=== PATIENT | female | born 1950 | race Caucasian/White ===

== ENCOUNTER 2018-11-17 13:37 | Day surgery (SDC) | payer MEDICARE, OTHER, SELFPAY ==
[2018-11-17] VITALS (11 sets, daily range): BP systolic 105–125; BP diastolic 59–73; PULSE 47–58; RESP 10–16; TEMP 36.2–36.3; O2SAT 96–99; BMI 24.6
--- NOTE | 2018-11-17 | PATH_ITS ---
[facility] Accession Number: [id number] . 01 Material submitted: . PART A: colon - POLYP ASCENDING COLON 2MM PART B: colon - ASCENDING COLON POLYP 3 X 2.5CM PART C: colon - DESCENDING COLON POLYP 1CM PART D: colon - SIGMOID COLON POLYP X 1.5CM PART E: colon - SIGMOID COLON POLYP 8-10 MM . 02 Diagnosis: A. Ascending Colon Polyp, 2 mm, Biopsy: Tubular adenoma. . B. Ascending Colon Polyp, 3 x 2.5 cm, Biopsy: Fragment of tubulovillous adenoma. Negative for high-grade dysplasia or malignancy. . C. Descending Colon Polyp, 1 cm, Biopsy: Tubular adenoma. . D. Sigmoid Colon Polyp, 1.5 cm, Biopsy: Tubular adenoma. . E. Sigmoid Colon Polyp, 8-10 mm, Biopsy: Hyperplastic polyp. [facility] 11/19/2018 1010 Local . 02 Electronically signed: . Wilfred Macario MD, PhD, Pathologist NPI- [id number] . 01 Gross description: . Part A: POLYP ASCENDING COLON 2MM: Received in formalin is 1 fragment(s) of mishra, soft tissue measuring 0.3 x 0.3 x 0.2 cm which is entirely submitted and submitted entirely in 1 cassette(s) Part B: ASCENDING COLON POLYP 3 X 2.5CM: Received in formalin is 1 fragment(s) of mishra, soft tissue measuring 0.3 x 0.2 x 0.2 cm which is entirely submitted and submitted entirely in 1 cassette(s) Part C: DESCENDING COLON POLYP 1CM: Received in formalin are 3 fragment(s) of mishra, soft tissue measuring 0.1 x 0.1 x 0.1 cm to 0.3 x 0.3 x 0.3 cm which is entirely submitted and submitted entirely in 1 cassette(s) Part D: SIGMOID COLON POLYP X 1.5CM: Received in formalin are 2 fragment(s) of mishra, soft tissue measuring 0.3 x 0.3 x 0.2 cm to 0.4 x 0.3 x 0.2 cm which is entirely submitted and submitted entirely in 1 cassette(s) Part E: SIGMOID COLON POLYP 8-10 MM: Received in formalin is 1 fragment(s) of mishra, soft tissue measuring 0.7 x 0.4 x 0.4 cm which is entirely submitted and submitted entirely in 1 cassette(s) /[facility] [place] 11/18/2018 1711 Local . 02 Pathologist provided ICD-10: D12.2, D12.4, D12.5 . 02 CPT . 975699, 763138, 819912, 926087, 648779 Performed at: 01 [facility] [address] [place] [address], [place], [place] [id number] MD Sergie Guevara MD Phone: [phone] Performed at: [address] [facility] [address] [place], [place] [id number] MD Carolyn Toledo MD Phone: [phone]
--- NOTE | 2018-11-17 14:44 | PM.OP.ENDO ---
Operative Date/Time/Diagnoses Date of procedure: 11/17/18 Time of procedure: 14:45 Pre-op diagnosis: 1. Screening for colon cancer Post-op diagnosis: other (1. Colon polyps) Procedure & Clinicians Study performed: Colonoscopy Same procedure as scheduled: Yes Indications: 1. Screening for colon cancer Surgeon: Lauren Barger Procedure Notes SCOAP/Timeout: 14:58 Procedure in detail: ENDOSCOPIST: Lauren Barger MD Sedation RN: Nafisa Dumont RN Sedation start time: 3:03 p.m. Sedation end time: 4:07 pm PROCEDURE: Colonoscopy with cold snare and methylene blue INDICATIONS: 1. Screening for colon cancer MEDICATION: Levsin 0.125 mg sublingual, incremental doses of Versed and fentanyl until appropriate level sedation achieved. ASA CLASS: 2 CECAL WITHDRAWAL TIME: 49 minutes COMPLICATIONS: None. EXTENT OF PROCEDURE: Cecum. QUALITY OF PREP: Good with portions of liquid stool. PROCEDURE: Prior to insertion of the colonoscope, a digital rectal examination was accomplished with circumferential palpation of the distal rectal mucosa without significant findings being noted. The high-definition pediatric colonoscope was passed into the rectum in the usual fashion and advanced over to the cecum without difficulty. The ileocecal valve, appendiceal stoma, and medial wall all could be inspected and no abnormalities were seen. ASCENDING COLON: As the colonoscope was withdrawn, care was taken to expose and inspect the haustral folds and a 2 mm polyp was seen and removed with cold biopsy forceps. In the mid-ascending colon, a 3 x 2.5 cm polyp was noted, targeted biopsy taken x1. Spot placed approximately 2 cm distal to the lesion on the medial and lateral ludwig. HEPATIC FLEXURE: Normal no polyps, diverticula or other abnormalities. TRANSVERSE COLON: Normal no polyps, diverticula or other abnormalities. DESCENDING COLON: A 1 cm polyp was seen, lifted with methylene blue, and removed with cold snare. Otherwise, no diverticula or other abnormalities. SIGMOID COLON: In the sigmoid colon, there was 1.5 cm polyp, lifted with methylene blue, hemoclip placed for hemostasis, and and removed with cold snare. Excellent hemostasis noted. Polyp was removed with a Rowley net and sent for pathology. Scope was then reinserted and a 2nd polyp approximately 8-10 mm was seen, lifted with methylene blue and removed with cold snare. Excellent hemostasis noted. Otherwise, no diverticula or other abnormalities. RECTUM: Normal. J maneuver was produced. There was no significant perianal disease. The J maneuver was broken. The remainder of the rectum was inspected and there was no external hemorrhoid disease. The scope was withdrawn. IMPRESSION: 1. Ascending polyp x1, 2 mm, removed with cold biopsy forceps 2. Ascending polyp x1, 3 x 2.5 cm, targeted biopsy taken x1, spot tattoo placed x2, unresected 3. Descending polyp x1, 1 cm, lifted with methylene blue, and removed with cold snare 4. Sigmoid polyp x2, 8-10 mm and 1.5 cm, lifted with methylene blue and removed with cold snares. Larger polyp was hemoclipped prior to polypectomy and removed with a Rowley net. PLAN: 1. Follow-up in clinic status post pathology results. The possibility of a missed lesion including a malignancy has been discussed with the patient previously. Potential alarm symptoms have been discussed and should be reported immediately. Scope withdrawal time: 49 minutes Sedation minutes: 64 Findings: polyp Specimen(s): other (as above) Complications: none Impression: As above Post-procedure Recommendations: Will call with biopsy results Follow up: weeks (2) Disposition: PACU
[2018-11-17] MEDS: HYOSCYAMINE 0.125 MG TABLET PO (14:54)
[2018-11-17] MEDS: MIDAZOLAM 5 MG/5 ML VIAL IV (16:10)
[2018-11-17] MEDS: fentaNYL 250 MCG/5 ML INJ IV (16:10)
[2018-11-17] MEDS: METHYLENE BLUE 50 MG/10 ML VIAL 10 MG IV (16:11)
--- NOTE | 2018-11-17 18:04 | SUR.PHASEII ---
1730 Dr. Barger notified HR 45, VVO for 1L bolus with a pressure bag. IV bag hung, pressure bag applied.
--- NOTE | 2018-11-17 18:11 | SUR.PHASEII ---
pt reported mild nausea, declined med. Queaze provided.
--- NOTE | 2018-11-17 18:44 | SUR.PHASEII ---
Pt able to sit and stand without difficulty. IV fluid bolus complete. HR 49. IV d/c'd. Pt dressed independently. Spouse present.
== END 2018-11-17 18:35 | disposition home or self-care (01) ==
PROVIDERS: PCP Student in an Organized Health Care Education/Training Program; Visit Provider Student in an Organized Health Care Education/Training Program
PROC: 0DJD8ZZ Inspection of Lower Intestinal Tract, Via Natural or Artificial Opening Endoscopic (ICD-10-PCS; CPT 45378; principal; 2018-11-17 15:00)
DX: Z12.11 Encounter for screening for malignant neoplasm of colon (principal); D12.2 Benign neoplasm of ascending colon; D12.4 Benign neoplasm of descending colon; D12.5 Benign neoplasm of sigmoid colon
CPT/HCPCS: 45385; 45381; J2250; J3010; Q9968

== ENCOUNTER 2019-01-06 09:42 | Day surgery (SDC) | payer MEDICARE, OTHER, SELFPAY ==
--- NOTE | 2019-01-06 | PATH_ITS ---
[facility] Accession Number: [id number] . 01 Material submitted: . colon - ASCENDING COLON POLYP . 02 Diagnosis: Ascending Colon Polyp: Multiple fragments of tubulovillous adenoma. There is no evidence of high-grade dysplasia or malignancy; electrocautery artifact is focally obscuring. [facility] 01/07/2019 1505 Local . 02 Electronically signed: . Pili Workman MD, Pathologist NPI- [id number] . 01 Gross description: . ASCENDING COLON POLYP: Received in formalin are multiple fragment(s) of mishra, soft tissue measuring 0.1 x 0.1 x 0.1 cm to 0.6 x 0.5 x 0.5 cm submitted entirely in 4 cassette(s) /DM 01/06/2019 2209 Local . 02 Pathologist provided ICD-10: K63.5, D49.0 . 02 CPT . 233299 Performed at: 01 [facility] [address], [place], [place] [id number] MD Sergei Guevara MD Phone: [phone] Performed at: 02 [facility] [address] [place], [place] [id number] MD Carolyn Toledo MD Phone: [phone]
[2019-01-06 09:57] VITALS: BMI 24.5
[2019-01-06 10:04] VITALS: BP 138/83; PULSE 58; RESP 16; TEMP 36.5; O2SAT 98
[2019-01-06] MEDS: SODIUM CHLORIDE 0.9% 1,000 ML 200 ML IV (10:22)
--- NOTE | 2019-01-06 10:37 | PM.PREOP ---
Pre-operative Note Interval Note History & Physical reviewed/Exam performed by Physician: Yes Changes to H&P: No ASA Class (for procedural sedation): II
[2019-01-06] MEDS: ONDANSETRON 4 MG/2 ML INJ IV (10:50)
[2019-01-06] MEDS: MIDAZOLAM 5 MG/5 ML VIAL IV (11:50)
[2019-01-06] MEDS: fentaNYL 250 MCG/5 ML INJ IV (11:50)
--- NOTE | 2019-01-06 11:54 | PM.OP.ENDO ---
Operative Date/Time/Diagnoses Date of procedure: 01/06/19 Time of procedure: 11:55 Pre-op diagnosis: Colon polyp ascending colon Post-op diagnosis: same (Diverticulosis sigmoid colon. Other smaller scattered polyps many of which were cauterized.) Procedure & Clinicians Study performed: Colonoscopy with hot snare polypectomy, cauterization of small polyps, injection of Latia ink into the wall of the colon in the ascending colon just distal to the large polyp found there. Same procedure as scheduled: Yes Indications: Patient has a large polyp in the ascending colon. I was asked to attempt to retrieve it. Surgeon: Roly Rodriguez Procedure Notes SCOAP/Timeout: Performed Procedure in detail: The patient was placed in the left lateral decubitus position and underwent IV sedation directed by the surgeon consisting of fentanyl and Versed. Digital exam was unremarkable except for decreased sphincter tone. The scope was inserted and advanced through the rectum into the sigmoid, descending, transverse, and ascending colon. I noted a small polyp going in that I decided to retrieve on the way out. I also noticed the large polyp in the ascending colon beyond the cecum.. The cecum was reached identified by the ileocecal valve. The scope was gradually brought out. In the ascending colon I was able to snare and removed the large polyp in pieces. The largest piece I had actually slice into segments in order to suction it through the colonoscope. At completion the base appeared to be free of lesion. Just beyond it I injected Latia ink into 3 locations the cc at each location. Each raised a good bubble of ink in just under the mucosa. Multiple other Polyps were found as I brought the scope out. These were small and I chose to cauterized these since the patient was already known to have numerous adenomas. All of these were under a cm in size. This included the polyp ice on the way in.. The scope ultimately was slowly brought through the anal verge. No lesions were seen there. The scope was removed and the patient tolerated the procedure well. The prep was excellent. Scope withdrawal time: Exceeded 6 minutes Sedation minutes: 62 Findings: diverticulosis (Sigmoid) and polyp (Multiple) Specimen(s): other (Polyp at ascending colon) Complications: none Post-procedure Recommendations: Other recommendation (Repeat colonoscopy in 6 months to ensure no regrowth of the lesion in the ascending colon.) Follow up: as needed Disposition: PACU
[2019-01-06 12:01] VITALS: BP 142/80; PULSE 59; RESP 13; TEMP 36.3; O2SAT 98
[2019-01-06 12:06] VITALS: BP 138/77; PULSE 55; RESP 17; O2SAT 99
[2019-01-06 12:11] VITALS: BP 141/82; PULSE 56; RESP 13; O2SAT 97
[2019-01-06 12:16] VITALS: BP 135/78; PULSE 55; RESP 11; O2SAT 98
[2019-01-06 12:46] VITALS: BP 124/73; PULSE 58; RESP 16; O2SAT 96
== END 2019-01-06 12:57 | disposition home or self-care (01) ==
PROVIDERS: PCP Student in an Organized Health Care Education/Training Program; Visit Provider Specialist
PROC: 0DJD8ZZ Inspection of Lower Intestinal Tract, Via Natural or Artificial Opening Endoscopic (ICD-10-PCS; CPT 45378; principal; 2019-01-06 10:45)
DX: D12.2 Benign neoplasm of ascending colon (principal); I10 Essential (primary) hypertension
CPT/HCPCS: 45381; 45385; 99152; 99153; J2250; J2405; J3010

== ENCOUNTER → 2019-08-24 09:28 | Outpatient (CLI) | payer MEDICARE, OTHER, SELFPAY ==
[2019-08-25 08:52] LABS: COVID19 Sendout Not Detected (Not Detect)
== END ==
PROVIDERS: PCP Student in an Organized Health Care Education/Training Program; Visit Provider Nurse Practitioner
DX: Z01.812 Encounter for preprocedural laboratory examination (principal)
CPT/HCPCS: 87635

== ENCOUNTER 2019-08-27 09:38 | Day surgery (SDC) | payer MEDICARE, OTHER, SELFPAY ==
--- NOTE | 2019-08-27 | PATH_ITS ---
[facility] Accession Number: [id number] . 01 Material submitted: . PART A: colon - TRANSVERSE COLON BIOPSY PART B: colon - ASCENDING COLON NEAR CECUM BIOPSY PART C: colon - COLON BIOPSY AT 65CM X3 PART D: colon - COLON BIOPSY AT 45CM . 02 Diagnosis: A. Transverse Colon, Biopsy: Serrated lesion, favor sessile serrated adenoma. . B. Ascending Colon Near Cecum, Biopsy: Sessile serrated adenoma. . C. Colon at 65 cm, Biopsies: Fragments of hyperplastic polyp and fragments of colonic mucosa with prominent benign lymphoid aggregates (three polyps removed). . D. Colon at 45 cm, Biopsy: Tubular adenoma. [facility] 08/28/2019 1132 Local . 02 Electronically signed: . Wilfred Macario MD, PhD, Pathologist NPI- [id number] . 01 Gross description: . Part A: TRANSVERSE COLON BIOPSY: Received in formalin are 3 fragment(s) of mishra, soft tissue measuring 0.7 x 0.2 x 0.1 cm to 0.3 x 0.1 x 0.1 cm submitted entirely in 1 cassette(s) Part B: ASCENDING COLON NEAR CECUM BIOPSY: Received in formalin are multiple fragment(s) of mishra, soft tissue measuring 1.0 x 0.8 x 0.2 cm in aggregate submitted entirely in 1 cassette(s) Part C: COLON BIOPSY AT 65CM X3: Received in formalin are multiple fragment(s) of mishra, soft tissue measuring 1.0 x 0.8 x 0.2 cm in aggregate submitted entirely in 1 cassette(s) Part D: COLON BIOPSY AT 45CM: Received in formalin are 2 fragment(s) of mishra, soft tissue measuring 0.6 x 0.2 x 0.2 cm to 0.3 x 0.3 x 0.1 cm submitted entirely in 1 cassette(s) /[facility] 08/27/2019 2229 Local . 02 Pathologist provided ICD-10: D12.3, D12.2, K63.5 . 02 CPT . 457247, 346236, 405934, 918604 Performed at: 01 [facility] [address] [id number] MD Sergei Guevara MD Phone: [phone] Performed at: 02 [facility] [address] [place], [place] [id number] MD Carolyn Toledo MD Phone: [phone]
[2019-08-27] MEDS: LACTATED RINGERS 1,000 ML 100 ML IV (09:52)
[2019-08-27 10:03] VITALS: BP 154/95; PULSE 70; RESP 20; TEMP 36.6; O2SAT 97; BMI 24.3
--- NOTE | 2019-08-27 10:26 | PM.HP.1 ---
History of Present Illness History of Present Illness Date Patient Seen: 08/27/19 Time Patient Seen: 10:26 Chief complaint: [id number] Narrative: The patient is a woman who had a very large polyp removed from her ascending colon about 6 months ago. Tattoos were performed at the time I am. She is here to make sure her that the removal was complete and there is no regrowth of any lesion. Patient History Medical History HTN (hypertension) (Acute) Surgical History History of ankle surgery (Acute) History of thyroid surgery (Acute) Hx of hysterectomy (Acute) Family & Social History Family History Mother Gallstones Sister Hypertension Social History: household members spouse Tobacco & Substance use: Smoking Status Never smoker alcohol intake never Substance Use Type does not use Meds Home Medications and Allergies Home Medications Medication Instructions Recorded Confirmed Type calcium polycarbophil [Fiber 1,250 mg PO DAILY #0 11/17/18 08/27/19 History (calcium polycarbophil)] lisinopril 20 mg PO DAILY 11/17/18 08/27/19 History Allergies Allergy/AdvReac Type Severity Reaction Status Date / Time codeine [CODEINE] Allergy Unknown NAUSEA Verified 08/24/19 09:37 Exam Vital Signs (past 8 hours): - 08/27/19 10:03 Temperature 98 F Pulse Rate 70 Respiratory Rate 20 Blood Pressure 154/95 H Pulse Oximetry 97 Oxygen Delivery Method Room Air Narrative Exam Narrative: No apparent distress. Lungs clear heart regular rate and rhythm without murmur gallop. Abdomen is soft nontender without mass. Patient is alert. Assessment & Plan Assessment & Plan narrative: Patient with a history of a large ascending colon polyp here for re-evaluation to make sure that the removal was complete and there is no regrowth of the lesion. I have discussed the procedure and the rationale with the patient including risks of bleeding, perforation which would necessitate a major operation, failure to find remove all lesions and the potential to tattoo. They appeared to understand and wished to proceed.
--- NOTE | 2019-08-27 10:48 | PM.PREOP ---
Pre-operative Note COVID-19 COVID-19 status: Negative Result date/Date tested (Pos, Neg/Pending): 08/24/19 Interval Note History & Physical reviewed/Exam performed by Physician: Yes Changes to H&P: No ASA Class (for procedural sedation): II
--- NOTE | 2019-08-27 11:33 | PM.OP.ENDO ---
Operative Date/Time/Diagnoses Date of procedure: 08/27/19 Time of procedure: 11:33 Pre-op diagnosis: History of large polyp in the ascending colon. Post-op diagnosis: same (Multiple small polyps identified and removed. One flat lesion just beyond the ileocecal valve was also removed.) Procedure & Clinicians Study performed: Colonoscopy with cold biopsy and hot snare polypectomy Same procedure as scheduled: Yes Indications: Follow-up exam after removing a large ascending colon polyp. Exam done to determine if that lesion was completely removed. Surgeon: Roly Rodriguez Procedure Notes SCOAP/Timeout: Perform Procedure in detail: The patient was placed in the left lateral decubitus position and underwent IV sedation directed by the surgeon consisting of fentanyl and Versed. Digital exam was unremarkable. The scope was inserted and advanced through the rectum into the sigmoid, descending, transverse, and ascending colon. The tattoo in the ascending colon was clearly seen. No polyps were seen in the area of the tattoo.. The cecum was reached identified by the ileocecal valve. The scope was gradually brought out. The flat lesion was noted just beyond the ileocecal valve. It probably measured over a cm and was snared and removed in pieces. It appeared to be completely removed at completion. I reexamined the area around the tattoo very carefully and did not see any lesion. Additional Polyps were found at transverse colon, 65 cm (3 lesions)and 45 cm from the anus.. I slowly brought the scope through the anal canal. The appearance was normal. The scope was removed and the patient tolerated the procedure well. The prep was good. Scope withdrawal time: 16 minutes(excludes snare time Sedation minutes: 43 Findings: polyp Specimen(s): other (Polyps) Complications: none Post-procedure Recommendations: Colonscopy in 3 years (Due to the frequency with which she forms polypoid lesions.) Follow up: as needed Disposition: PACU
[2019-08-27] MEDS: fentaNYL 250 MCG/5 ML INJ IV (11:35)
[2019-08-27] MEDS: MIDAZOLAM 5 MG/5 ML VIAL IV (11:35)
[2019-08-27] MEDS: ONDANSETRON 4 MG/2 ML INJ IV (11:35)
[2019-08-27 11:39] VITALS: BP 129/78; PULSE 63; RESP 14; TEMP 36.2; O2SAT 99
[2019-08-27 11:42] VITALS: BP 121/79; PULSE 68; RESP 10; O2SAT 98
[2019-08-27 11:46] VITALS: BP 112/77; PULSE 67; RESP 13; O2SAT 95
[2019-08-27 11:51] VITALS: BP 124/71; PULSE 67; RESP 16; TEMP 37.3; O2SAT 98
[2019-08-27 12:30] VITALS: BP 118/70; PULSE 66; RESP 16; TEMP 36.7; O2SAT 98
== END 2019-08-27 12:45 | disposition home or self-care (01) ==
PROVIDERS: PCP Student in an Organized Health Care Education/Training Program; Referring Provider Specialist; Visit Provider Specialist
PROC: 0DJD8ZZ Inspection of Lower Intestinal Tract, Via Natural or Artificial Opening Endoscopic (ICD-10-PCS; CPT 45378; principal; 2019-08-27 10:45)
DX: D12.3 Benign neoplasm of transverse colon (principal); I10 Essential (primary) hypertension; D12.2 Benign neoplasm of ascending colon; D12.6 Benign neoplasm of colon, unspecified
CPT/HCPCS: 45385; 45380; 99152; 99153; J2250; J2405; J3010

== ENCOUNTER → 2020-12-29 15:41 | Outpatient (CLI) | payer MEDICARE, OTHER, SELFPAY ==
[2020-12-29 16:10] LABS: COVID19 -Nasal RAPID POSITIVE (Negative)
== END ==
PROVIDERS: PCP Student in an Organized Health Care Education/Training Program; Visit Provider Physician Assistant
DX: U07.1 COVID-19 (principal); Z20.822 Contact with and (suspected) exposure to COVID-19
CPT/HCPCS: 87635

== ENCOUNTER → 2022-03-13 10:24 | Outpatient (CLI) | payer MEDICARE, OTHER, SELFPAY ==
--- NOTE | 2022-03-13 | DI.RAD.S_ITS ---
PROCEDURE: XR HIP W PEL IF DONE LT 2V INDICATIONS: sacrolitis TECHNIQUE: AP pelvis with lateral view(s) of the left hip(s). COMPARISON: None. FINDINGS: Bones: No fractures or dislocations. Pelvic ring appears intact. No suspicious bony lesions. Possible/equivocal minimal degenerative changes of both hips. Soft tissues: The visualized bowel gas pattern is normal. No suspicious soft tissue calcifications. IMPRESSION: No acute osseous abnormality. If symptoms persist, follow-up radiographs and/or CT or MRI may be helpful for further evaluation. Dictated by: Pancho Rodriguez M.D. on 03/13/2022 at 21:17 Approved by: Pancho Rodriguez M.D. on 03/13/2022 at 21:19
== END ==
PROVIDERS: PCP Registered Nurse; Referring Provider Registered Nurse; Visit Provider Registered Nurse
DX: M46.1 Sacroiliitis, not elsewhere classified (principal)
CPT/HCPCS: 73502